=== PATIENT | male | born 1960 | race Caucasian/White ===

== ENCOUNTER 2017-03-10 23:11 | Emergency (ER) | payer SELFPAY ==
[~2017-03-10] VITALS: Ht 190.5 cm; Wt 99.8 kg
--- NOTE | 2017-03-11 00:24 | PHYS DOC ---
Past Medical History Past Medical History: CAD Past Surgical History: Cholecystectomy, Coronary Bypass Surgery Alcohol Use: None Drug Use: Marijuana Adult General Chief Complaint Chief Complaint: Neck Pain HPI HPI 56-year-old male presenting to the emergency department today with left shoulder and left-sided neck pain this started 2 days ago. The pain is sharp intermittent worse when he moves his neck and without alleviating factors. Denies any chest pain or shortness of breath. He denies shortness of breath unilateral leg swelling hemoptysis or history of blood clots. He does have a history of a CABG and coronary artery disease. He states that his symptoms are not similar to previous heart attacks or cardiac events. Patient denies neck stiffness. Review of systems is negative for chest pain shortness of breath abdominal pain nausea vomiting diaphoresis fevers or chills. All other review of systems is negative unless otherwise noted in history of present illness. ED course: 56-year-old male presenting to the emergency department today with neck pain. EKG obtained and reviewed by myself. Chest x-ray obtained. Blood work obtained. Patient was given an aspirin and a Lortab in the emergency department which improved his symptoms. On examination the patient does not have any neck stiffness. Negative Brudzinski sign. Negative Kernig sign. Patient is well-appearing. Otherwise lungs are clear to auscultation. Patient symptoms are atypical for ACS. His symptomatology is been present for greater than 6 hours. EKG unremarkable. Troponin negative. His pain is much improved. heart score calculated to be 3. Repeat EKG performed at 1257 shows no acute evolving changes. Similar to previous. Discussed the case with Dr. Weems who recommends outpatient follow-up and offered to f/u with the pt if he would like. The patient was then discharged home in stable condition to follow up with their primary care physician over the next 2-3 days. They were to return if their symptoms worsened or if they were concerned for any reason. Face-to- face discharge instructions and return precautions were given. Patient's questions were answered to their satisfaction. Patient is comfortable plan. Review of Systems Review of Systems SEE ABOVE. Current Medications Current Medications Current Medications Medications (Trade) Dose Ordered Sig/Ophelia Start Time Stop Time Status Last Admin Dose Admin Acetaminophen/ Hydrocodone Bitart (Lortab 5/325) 2 tab 1X ONCE 03/11/17 01:00 03/11/17 01:01 DC 03/11/17 00:34 2 TAB Aspirin (Children'S Aspirin) 324 mg 1X ONCE 03/11/17 00:30 03/11/17 00:31 DC 03/11/17 00:34 324 MG Allergies Allergies Allergies Coded Allergies Type Severity Reaction Last Updated Verified No Known Drug Allergies 03/10/17 No Physical Exam Physical Exam SEE ABOVE Constitutional: Well developed, well nourished, no acute distress, non-toxic appearance. HENT: Normocephalic, atraumatic, bilateral external ears normal, oropharynx moist, no oral exudates, nose normal. [] Eyes: PERRLA, EOMI, conjunctiva normal, no discharge. Neck: Normal range of motion, no tenderness, supple, no stridor. [] Cardiovascular:Heart rate regular rhythm, no murmur Lungs & Thorax: Bilateral breath sounds clear to auscultation [] Abdomen: Bowel sounds normal, soft, no tenderness, no masses, no pulsatile masses. Skin: Warm, dry, no erythema, no rash. [] Back: No tenderness, no CVA tenderness. Extremities: No tenderness, no cyanosis, no clubbing, ROM intact, no edema. [] Neurologic: Alert and oriented X 3, normal motor function, normal sensory function, no focal deficits noted. Psychologic: Affect normal, judgement normal, mood normal. [] Current Patient Data Vital Signs Vital Signs Date Time Temp Pulse Resp B/P (MAP) Pulse Ox O2 Delivery O2 Flow Rate FiO2 03/10/17 23:26 98.3 85 20 135/78 (97) 98 Room Air 98.3 Lab Values Laboratory Tests Test 03/11/17 00:40 White Blood Count 7.0 x10^3/uL (4.0-11.0) Red Blood Count 5.04 x10^6/uL (4.30-5.70) Hemoglobin 14.8 g/dL (13.0-17.5) Hematocrit 43.7 % (39.0-53.0) Mean Corpuscular Volume 87 fL (79-100) Mean Corpuscular Hemoglobin 29 pg (25-35) Mean Corpuscular Hemoglobin Concent 34 g/dL (31-37) Red Cell Distribution Width 13.4 % (11.5-14.5) Platelet Count 257 x10^3/uL (140-400) Neutrophils (%) (Auto) 50 % (31-73) Lymphocytes (%) (Auto) 35 % (24-48) Monocytes (%) (Auto) 9 % (0-9) Eosinophils (%) (Auto) 4 % (0-3) H Basophils (%) (Auto) 1 % (0-3) Neutrophils # (Auto) 3.5 x10^3uL (1.8-7.7) Lymphocytes # (Auto) 2.5 x10^3/uL (1.0-4.8) Monocytes # (Auto) 0.6 x10^3/uL (0.0-1.1) Eosinophils # (Auto) 0.3 x10^3/uL (0.0-0.7) Basophils # (Auto) 0.1 x10^3/uL (0.0-0.2) Sodium Level 142 mmol/L (136-145) Potassium Level 4.2 mmol/L (3.5-5.1) Chloride Level 104 mmol/L (98-107) Carbon Dioxide Level 30 mmol/L (21-32) Anion Gap 8 (6-14) Blood Urea Nitrogen 13 mg/dL (8-26) Creatinine 1.1 mg/dL (0.7-1.3) Estimated GFR (Cockcroft-Gault) 69.5 Glucose Level 114 mg/dL (70-99) H Calcium Level 9.4 mg/dL (8.5-10.1) Total Bilirubin 0.2 mg/dL (0.2-1.0) Direct Bilirubin < 0.1 mg/dL (0.0-0.2) Aspartate Amino Transferase (AST) 16 U/L (15-37) Alanine Aminotransferase (ALT) 21 U/L (16-63) Alkaline Phosphatase 83 U/L (46-116) Troponin I Quantitative < 0.017 ng/mL (0.000-0.055) OK-Afj-T-Type Natriuretic Peptide 21 pg/mL (0-124) Total Protein 6.7 g/dL (6.4-8.2) Albumin 3.3 g/dL (3.4-5.0) L Lipase 254 U/L (73-393) Laboratory Tests 03/11/17 00:40 Laboratory Tests 03/11/17 00:40 EKG EKG [] Radiology/Procedures Radiology/Procedures [] Course & Med Decision Making Course & Med Decision Making Pertinent Labs and Imaging studies reviewed. (See chart for details) [] Dragon Disclaimer Dragon Disclaimer This electronic medical record was generated, in whole or in part, using a voice recognition dictation system. Departure Departure Impression: Primary Impression: Neck pain Disposition: HOME, SELF-CARE Condition: STABLE Referrals: NO PCP (PCP) DIEUDONNE WEEMS MD Patient Instructions: Cervical Radiculopathy, [id number] Additional Instructions: Thank you for allowing us to participate in your care today. Followup with Dr. Weems tomorrow. Call your Primary Doctor tomorrow and inform them of your visit today. If you do not have a primary care provider you can ask for a list of our primary care providers. Return to the emergency department you have any new or concerning findings. This should be evaluated by the primary care physician and any necessary consulting services for continued management within a few days after discharge. Return to emergency room if you have any new or concerning symptoms including but not limited to fever, chills, nausea, vomiting, intractable pain, any new rashes, chest pain, shortness of air, uncontrolled bleeding, difficulty breathing, and/or vision loss. You may have been prescribed medication that can change in your level of thinking and ability to operate machinery. These medications include hydrocodone and Ativan. Also, Benadryl has been known to do this as well. Be sure to check with your pharmacist and ask if the medications you've prescribed can affect your level of consciousness. I recommend not operating heavy machinery or driving while on medication such as these. Scripts Hydrocodone Bit/Acetaminophen (HYDROCODONE-APAP 5-325 ) 1 Each Tablet 1 TAB PO PRN Q6HRS Y for PAIN, #10 TAB 0 Refills Be careful as this medication may cause you to be drowsy or tired. Do not drive on this medication. Prov: BRIDGER CARTER MD 03/11/17 BRIDGER CARTER MD Mar 11, 2017 00:24
[2017-03-11] MEDS ORDERED: ASPIRIN CHEWABLE 81 MG TABLET. PO ONE (00:30)
[2017-03-11 00:51] LABS: BASO # 0.1 x10^3/uL (0.0-0.2); BASO % 1 % (0-3); EOS % 4 % (0-3); HEMATOCRIT 43.7 % (39.0-53.0); HEMOGLOBIN 14.8 g/dL (13.0-17.5); LYMPH # 2.5 x10^3/uL (1.0-4.8); LYMPH % 35 % (24-48); MEAN CORPUSCULAR HEMOGLOBIN 29 pg (25-35); MEAN CORPUSCULAR HGB CONC 34 g/dL (31-37); MEAN CORPUSCULAR VOLUME 87 fL (79-100); MONO % 9 % (0-9); NEUT % 50 % (31-73); PLATELET COUNT 257 x10^3/uL (140-400); RED BLOOD COUNT 5.04 x10^6/uL (4.30-5.70); RED CELL DISTRIBUTION WIDTH 13.4 % (11.5-14.5)
[2017-03-11] MEDS ORDERED: HYDR-2758 PO (00:57)
[2017-03-11] MEDS ORDERED: HYDROcodone/APAP 5/325MG 1 TAB TABLET PO ONE (01:00)
[2017-03-11 01:03] LABS: ANION GAP 8 (6-14); BLOOD UREA NITROGEN 13 mg/dL (8-26); CALCIUM 9.4 mg/dL (8.5-10.1); CARBON DIOXIDE 30 mmol/L (21-32); CHLORIDE 104 mmol/L (98-107); CREATININE 1.1 mg/dL (0.7-1.3); GFR 69.5; GLUCOSE 114 mg/dL (70-99); POTASSIUM 4.2 mmol/L (3.5-5.1); SODIUM 142 mmol/L (136-145)
[2017-03-11 01:09] LABS: ALBUMIN 3.3 g/dL (3.4-5.0); ALK PHOS 83 U/L (46-116); ALT (SGPT) 21 U/L (16-63); AST (SGOT) 16 U/L (15-37); DIRECT BILIRUBIN < 0.1 mg/dL (0.0-0.2); TOTAL BILIRUBIN 0.2 mg/dL (0.2-1.0); TOTAL PROTEIN 6.7 g/dL (6.4-8.2)
[2017-03-11 01:30] VITALS: BP 119/68
--- NOTE | 2017-03-11 06:22 | EKG ---
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
--- NOTE | 2017-03-11 07:08 | EKG ---
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
--- NOTE | 2017-03-11 07:26 | RAD ---
Portable chest, 03/11/2017: History: Chest pain Comparison is made to a study from 03/24/2011. There has been a previous median sternotomy. The heart size and pulmonary vascularity are normal. No pulmonary infiltrates are seen. There is no evidence of pleural fluid. IMPRESSION: No acute cardiopulmonary abnormality is detected.
== END 2017-03-11 01:57 | disposition home or self-care (01) ==
LOC: ER 23:11
DX: M54.2 Cervicalgia (principal); M25.512 Pain in left shoulder; I25.10 Atherosclerotic heart disease of native coronary artery without angina pectoris; Z95.1 Presence of aortocoronary bypass graft
CPT/HCPCS: 36415; 71010; 80048; 80076; 83690; 83880; 84484; 85025; 93005; 99285-25

== ENCOUNTER 2018-09-07 16:27 | Inpatient (IN) | payer SELFPAY ==
[~2018-09-07] VITALS: Ht 188 cm; Wt 102.1 kg
[~2018-09-07 16:27] MED LIST: HYDR-2761 PO
[2018-09-07] MEDS ORDERED: DIPHTH,PERTUSS(ACELL),TET TOX 0.5 ML DISP.SYRIN. VAX IM ONE (16:45)
[2018-09-07] MEDS ORDERED: MORPHINE SULFATE 10 MG/ML VIAL. IM ONE (16:45)
[2018-09-07] MEDS ORDERED: LIDOCAINE WITH 8.4% SOD BICARB 3 ML DISP.SYRIN. INJ ONE ×2 (16:45)
[2018-09-07 16:58] LABS: BASO % 1 % (0-3); EOS # 0.2 x10^3/uL (0.0-0.7); EOS % 2 % (0-3); HEMATOCRIT 44.5 % (39.0-53.0); HEMOGLOBIN 15.1 g/dL (13.0-17.5); LYMPH # 3.7 x10^3/uL (1.0-4.8); LYMPH % 47 % (24-48); MEAN CORPUSCULAR HEMOGLOBIN 29 pg (25-35); MEAN CORPUSCULAR HGB CONC 34 g/dL (31-37); MEAN CORPUSCULAR VOLUME 86 fL (79-100); MONO # 0.8 x10^3/uL (0.0-1.1); MONO % 10 % (0-9); NEUT # 3.1 x10^3uL (1.8-7.7); NEUT % 40 % (31-73); PLATELET COUNT 273 x10^3/uL (140-400); RED BLOOD COUNT 5.16 x10^6/uL (4.30-5.70); RED CELL DISTRIBUTION WIDTH 13.8 % (11.5-14.5); WHITE BLOOD COUNT 7.8 x10^3/uL (4.0-11.0)
[2018-09-07 17:07] LABS: CALCIUM 8.9 mg/dL (8.5-10.1); CREATININE 1.3 mg/dL (0.7-1.3); GFR 57.1; POTASSIUM 4.3 mmol/L (3.5-5.1)
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
[2018-09-07 17:09] LABS: PROTHROMBIN TIME PATIENT 12.3 SEC (11.7-14.0)
[2018-09-07 17:15] LABS: ALBUMIN 3.8 g/dL (3.4-5.0); ALBUMIN/GLOBULIN RATIO 1.1 (1.0-1.7); TOTAL BILIRUBIN 0.4 mg/dL (0.2-1.0); TOTAL PROTEIN 7.4 g/dL (6.4-8.2)
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
[2018-09-07] MEDS ORDERED: HYDROmorphone 2 MG/ML VIAL IV ONE (18:45)
[2018-09-07 19:00] VITALS: BP 118/74
[2018-09-07] MEDS ORDERED: ONDANSETRON PF 4 MG/2 ML VIAL. IV PRN ×2 (19:00→21:30)
[2018-09-07] MEDS ORDERED: MORPHINE SULFATE 4 MG/ML VIAL. IV PRN (19:00)
--- NOTE | 2018-09-07 19:18 | NUR ---
The patient, MARQUEZ ANGLIN, 57 y/o, M admitted by GINA ELAINE MD, was given written information regarding hospital policies, unit procedures and contact persons. Patient was transported from ED to room 430 via bed with son at bedside. RN performed a head to toe assessment at that time, VSS, afebrile, and rated pain a 5/10. Bed is in lowest locked position and call light is within reach. Valuables were checked and left in room with the patient. MD was paged for fluids due to patient being NPO, orders were received and implemented at that time. RN will continue to monitor.
[2018-09-07] MEDS: IV NORMAL SALINE 1000ML BAG 1,000 ML IV SCH (20:49)
[2018-09-07] MEDS ORDERED: diphenhydrAMINE 50 MG/ML VIAL IVP PRN (21:30)
[2018-09-07] MEDS ORDERED: MAG HYDROX/ALUMINUM HYD/SIMETH 30 ML ORAL.SUSP PO PRN (21:30)
[2018-09-07] MEDS ORDERED: HYDROmorphone 2 MG/ML VIAL IV PRN (21:30)
[2018-09-07] MEDS ORDERED: ACETAMINOPHEN 325 MG TABLET. PO PRN (21:30)
[2018-09-07] MEDS ORDERED: DOCUSATE SODIUM 100 MG CAPSULE. PO PRN (21:30)
[2018-09-07] MEDS ORDERED: guaiFENesin ORAL 200 MG/10 ML LIQUID. PO PRN (21:30)
[2018-09-07] MEDS ORDERED: HYDROcodone/APAP 5/325MG 1 TAB TABLET PO PRN (21:30)
[2018-09-07] MEDS ORDERED: cloNIDine HCL 0.1 MG TABLET PO PRN (21:30)
[2018-09-07] MEDS ORDERED: 0.9 % SODIUM CHLORIDE 3ML DISP.SYRIN. IV PRN (21:30)
[2018-09-07] MEDS ORDERED: LORazepam 0.5 MG TABLET PO PRN (21:30)
[2018-09-07] MEDS: IPRATRPIUM/ALBUTEROL 0.5/2.5MG 3 ML NEBU. NEB SCH (21:56)
[2018-09-07] MEDS: ENOXAPARIN 40 MG/0.4 ML SYRINGE. SQ SCH (22:00)
[2018-09-07 23:00] VITALS: BP 105/68
[2018-09-08] VITALS (13 sets, daily range): BP systolic 94–136; BP diastolic 51–85
[2018-09-08 03:43] LABS: BASO % 0 % (0-3); EOS # 0.2 x10^3/uL (0.0-0.7); EOS % 3 % (0-3); HEMATOCRIT 40.9 % (39.0-53.0); HEMOGLOBIN 13.5 g/dL (13.0-17.5); LYMPH # 2.8 x10^3/uL (1.0-4.8); LYMPH % 36 % (24-48); MEAN CORPUSCULAR HEMOGLOBIN 29 pg (25-35); MEAN CORPUSCULAR HGB CONC 33 g/dL (31-37); MEAN CORPUSCULAR VOLUME 86 fL (79-100); MONO # 0.8 x10^3/uL (0.0-1.1); MONO % 11 % (0-9); NEUT % 51 % (31-73); PLATELET COUNT 221 x10^3/uL (140-400); RED BLOOD COUNT 4.73 x10^6/uL (4.30-5.70); WHITE BLOOD COUNT 7.8 x10^3/uL (4.0-11.0)
[2018-09-08 03:57] LABS: CALCIUM 8.1 mg/dL (8.5-10.1); CREATININE 1.2 mg/dL (0.7-1.3); GFR 62.6; POTASSIUM 4.2 mmol/L (3.5-5.1)
[2018-09-08] MEDS: IPRATRPIUM/ALBUTEROL 0.5/2.5MG 3 ML NEBU. NEB SCH ×5 (06:00→22:00)
[2018-09-08] MEDS: IV NORMAL SALINE 1000ML BAG 1,000 ML IV SCH ×4 (06:07→18:10)
[2018-09-08] MEDS ORDERED: BUPIVACAINE MPF 0.5% 30 ML VIAL. ONE (06:25)
[2018-09-08] MEDS ORDERED: IV RINGERS,LACTATED 1000ML 1,000 ML IV SCH (06:56)
[2018-09-08] MEDS ORDERED: fentaNYL PF VIAL 100 MCG/2 ML VIAL IV PRN ×2 (07:00)
[2018-09-08] MEDS ORDERED: PROCHLORPERAZINE 10 MG/2 ML VIAL. IV PRN (07:00)
[2018-09-08] MEDS ORDERED: MORPHINE SULFATE 2 MG/ML VIAL. IV PRN (07:00)
[2018-09-08] MEDS ORDERED: ONDANSETRON PF 4 MG/2 ML VIAL. IV PRN (07:00)
[2018-09-08] MEDS ORDERED: HYDROmorphone 2 MG/ML VIAL IV PRN (07:00)
--- NOTE | 2018-09-08 07:03 | NUR ---
pt left for surgery at [id number]
[2018-09-08] MEDS ORDERED: fentaNYL PF VIAL 100 MCG/2 ML VIAL ONE (07:13)
[2018-09-08] MEDS ORDERED: MIDAZOLAM HCL/PF 2 MG/2 ML VIAL. ONE (07:13)
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
--- NOTE | 2018-09-08 09:28 | NUR ---
SW following for discharge planning. Discussed with RN, pt currently having surgery. Pt listed as self pay, SW to give self pay resource packet when pt is appropriate to visit. SW will continue to follow.
--- NOTE | 2018-09-08 10:30 | NUR ---
pt returned to unit at 1005 in stable condition. pt is rating his pain 5/10 but appears comfortable and had received pain medication right before coming to floor. pt is drowsy but oriented. family is at bedside. call light is within reach and frequent vital signs have been started. received report from CONY Rainey in PACU. will continue to monitor. Addendum: 09/08/18 at 1422 by FABRIZIO CHANG RN RN dressing is CDI with ice pack applied
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
[2018-09-08] MEDS: ENOXAPARIN 40 MG/0.4 ML SYRINGE. SQ SCH (21:52)
[2018-09-08] MEDS: oxyCODONE/APAP 5/325 1 TAB TABLET PO PRN (22:37)
[2018-09-09 03:00] VITALS: BP 95/48
[2018-09-09] MEDS: IV NORMAL SALINE 1000ML BAG 1,000 ML IV SCH (06:20)
[2018-09-09 07:00] VITALS: BP 92/56
[2018-09-09] MEDS: IPRATRPIUM/ALBUTEROL 0.5/2.5MG 3 ML NEBU. NEB SCH ×2 (07:35→11:42)
[2018-09-09] MEDS: oxyCODONE/APAP 5/325 1 TAB TABLET PO PRN (08:07)
[2018-09-09] MEDS ORDERED: APIXABAN 5 MG TABLET. PO SCH (09:00)
[2018-09-09] MEDS: ERGOCALCIFEROL (VITAMIN D2) 50,000 UNIT CAPSULE. PO SCH ×2 (09:00→10:00)
[2018-09-09] MEDS ORDERED: OXYC1TAB15 PO (09:13)
[2018-09-09] MEDS ORDERED: ERGO500027 PO (09:13)
[2018-09-09] MEDS ORDERED: APIX5TAB PO (09:13)
[2018-09-09] MEDS ORDERED: ANTI-COAG MONITOR BY PHARMACY. MC PRN (09:15)
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
[2018-09-09 11:00] VITALS: BP 91/41
--- NOTE | 2018-09-09 14:42 | NUR ---
Pt was given all discharge instructions, follow up information, new prescriptions and teaching. Pt is stable. Alert x4. Iv removed. No tele. Pt will follow up with Dr. Beckman in 2 weeks. Pt will be returning home with crutches and walker, NWB on left leg. Dressing was changed before he left. 2 incisions have nacho, well approximated, no redness or drainage at the site. Pt left via wheelchair, with hospital [employer] and friend at [phone]. Elitanya coupon given for prescription.
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
== END 2018-09-09 13:35 | disposition home or self-care (01) | DRG 494 ==
LOC: ER 16:27 → 4 NORTH 17:37
PROVIDERS: ADMIT Family Medicine; ATTEND Family Medicine
PROC: 0HQ1XZZ Repair Face Skin, External Approach (ICD-10-PCS; 2018-09-07)
PROC: 2W3MX1Z Immobilization of Left Lower Extremity using Splint (ICD-10-PCS; 2018-09-07)
PROC: 0QSH04Z Reposition Left Tibia with Internal Fixation Device, Open Approach (ICD-10-PCS; principal; 2018-09-08 07:30)
DX: S82.392A Other fracture of lower end of left tibia, initial encounter for closed fracture (principal); S82.832A Other fracture of upper and lower end of left fibula, initial encounter for closed fracture; E78.5 Hyperlipidemia, unspecified; F17.210 Nicotine dependence, cigarettes, uncomplicated; I25.10 Atherosclerotic heart disease of native coronary artery without angina pectoris; J44.9 Chronic obstructive pulmonary disease, unspecified; S01.112A Laceration without foreign body of left eyelid and periocular area, initial encounter; F12.90 Cannabis use, unspecified, uncomplicated; V18.4XXA Pedal cycle driver injured in noncollision transport accident in traffic accident, initial encounter; Y93.55 Activity, bike riding; Y92.89 Other specified places as the place of occurrence of the external cause; Y99.8 Other external cause status; Z82.49 Family history of ischemic heart disease and other diseases of the circulatory system; Z82.5 Family history of asthma and other chronic lower respiratory diseases; Z95.1 Presence of aortocoronary bypass graft; Z90.49 Acquired absence of other specified parts of digestive tract; Z79.899 Other long term (current) drug therapy
CPT/HCPCS: 12013; 36415; 70450; 70486; 71045; 72125; 73590; 73600; 76000; 80048; 80053; 82306; 85025; 85610; 85730; 86850; 86900; 86901; 90471; 90715; 94640; A7015; C1713; G0480; J0696; J0780; J1170; J1650; J2250; J2270; J3010; J3490; J7030; J7120; J7620; 97110; 97116; 97530; 97535; 99285-25